=== PATIENT | female | born 1945 | race Asian ===

== ENCOUNTER 2017-03-12 06:19 | Day surgery (SDC) | payer MEDICARE, OTHER ==
[~2017-03-12] VITALS: Ht 158.8 cm; Wt 39.5 kg
[~2017-03-12 06:19] MED LIST: SODIUM CHLORIDE 0.9% 1,000 ML IV ONE
[2017-03-12] MEDS ORDERED: SODIUM CHLORIDE 0.9% 1,000 ML IV ONE (06:35)
[2017-03-12] MEDS ORDERED: BUDE10.2 IH (06:44)
[2017-03-12] MEDS ORDERED: NORT25 PO (06:44)
[2017-03-12] MEDS ORDERED: OMEP20 PO (06:44)
[2017-03-12] MEDS ORDERED: CITA20TA9 PO (06:44)
[2017-03-12] MEDS ORDERED: PILO7.5T2 PO (06:44)
[2017-03-12] MEDS ORDERED: DONE5TAB PO (06:44)
[2017-03-12] MEDS ORDERED: FentaNYL CITRATE-PF 100 MCG/2 ML VIAL ONE (07:55)
[2017-03-12] MEDS ORDERED: MIDAZOLAM HCL 2 MG/2 ML VIAL ONE (07:55)
[2017-03-12] MEDS ORDERED: MethylPREDNISolone SOD SUCC 125 MG/2 ML VIAL IVP ONE (08:45)
[2017-03-12] MEDS ORDERED: MethylPREDNISolone SOD SUCC 125 MG/2 ML VIAL ONE (09:25)
[2017-03-12] MEDS ORDERED: BENZOCAINE 20% 50 MCG/SPRAY 57 GM TP ONE (16:41)
[2017-03-12] MEDS ORDERED: LIDOCAINE HCL 4% 50 ML SOLUTION TP ONE (16:41)
[2017-03-12] MEDS ORDERED: ALBUTEROL SULFATE 2.5 MG/0.5 ML NEB SOLUTION NEB ONE (16:41)
[2017-03-12] MEDS ORDERED: LIDOCAINE HCL 2% 30 ML JELLY TP ONE (16:41)
[2017-03-12] MEDS ORDERED: OXYGEN THERAPY IH SCH (20:00)
== END 2017-03-12 10:50 | disposition home or self-care (01) ==
LOC: SURGERY 06:19
PROVIDERS: ATTEND Internal Medicine Critical Care Medicine
DX: J38.4 Edema of larynx (principal); B37.0 Candidal stomatitis
CPT/HCPCS: 31623; 31624; 71010; 87015; 87070; 87101; 87205; 87220; J2250; J2930; J3010; J7030; 88108; 88312